=== PATIENT | female | born 1960 | race Caucasian/White ===

== ENCOUNTER → 2018-06-29 | Outpatient (CLI) | payer OTHER ==
[~2018-06-29] MED LIST: ASPIRIN325 PO; COLACE100 MG PO; HYDROCODONE-AP1 EAC6 PO; LEVOTHYROXIN0.075 MG PO; LEXAPRO20 MG PO; LIDODERM 5%1 PATC1 TOP; MINOCIN100 MG PO; MIRALAX17 GM PO; OXYCODONE HCL 55 MG PO; OXYCODONE HCL5 M1 PO; PERCOCET 10-321 EACH PO; TRAMADOL 50 MG50 MG PO; VOLTAREN GEL 1100 G2 TOP; XANAX 0.5 MG0.5 MG PO; XARELTO10 MG PO
== END ==
LOC: M.MRI 07:05
DX: D73.4 Cyst of spleen (principal); R30.0 Dysuria; R10.9 Unspecified abdominal pain; Z90.710 Acquired absence of both cervix and uterus